=== PATIENT | male | born 1960 | race Hispanic/Latino ===

== ENCOUNTER 2019-10-27 07:20 | Observation (INO) | payer BC, OTHER ==
[2019-10-27] MEDS ORDERED: Ondansetron PF 4 MG/2 ML Vial ONE (07:42)
[2019-10-27 07:59] LABS: #Basophils 0.1 thou/uL (0.0-0.2); #Lymphocytes 2.3 thou/uL (1.20-3.40); #Monocytes 0.9 thou/uL (0.11-0.59); #Neutrophils 7.8 thou/uL (1.40-6.50); %Basophils 0.5 % (0.0-1.0); %Eosinophils 0.2 % (0.0-10.0); %Monocytes 7.7 % (0.0-10.0); %Neutrophils 70.6 % (42.0-75.0); Hemoglobin 12.1 g/dL (14.0-18.0); Mean Corpuscular Volume 97.3 fL (78.0-98.0); Mean Platelet Volume 8.1 fL (7.4-10.4); Platelet Count 136 thou/uL (130-400); RBC Distribution Width 12.1 % (11.5-14.5); Red Blood Cell (RBC) Count 3.67 mill/uL (4.70-6.10); White Blood Cell (WBC) Count 11.1 thou/uL (4.8-10.8)
[2019-10-27 08:16] LABS: ALT (SGPT) 77 U/L (8-55); AST (SGOT) 62 U/L (5-34); Albumin 4.5 g/dL (3.5-5.0); Alkaline Phosphatase 59 U/L (40-110); Anion Gap 18 mmol/L (10-20); BUN (Urea Nitrogen) 15 mg/dL (8.4-25.7); Calc. Creatinine Clearance 0 mL/min (70-130); Carbon Dioxide 34 mmol/L (22-29); Estimated GFR-MDRD 78; Globulin 2.9 g/dL (2.4-3.5); Glucose 251 mg/dL (70-105); Lipase 56 U/L (8-78); Protein, Total 7.4 g/dL (6.0-8.3); Sodium 120 mmol/L (136-145)
[2019-10-27 08:19] LABS: Chloride 71 mmol/L (98-107); Potassium 2.8 mmol/L (3.5-5.1)
[2019-10-27 08:38] LABS: Chloride 79 mmol/L (98-107)
[2019-10-27 08:39] LABS: Potassium 2.9 mmol/L (3.5-5.1)
[2019-10-27] MEDS ORDERED: Potassium Chloride 20 MEQ/100 ML PREMIX BAG ONE (08:44)
[2019-10-27 08:47] LABS: Sodium 123 mmol/L (136-145)
[2019-10-27] MEDS ORDERED: Pantoprazole 40 MG VIAL ONE (08:54)
--- NOTE | 2019-10-27 08:55 | RAD ---
Exam: Chest one view HISTORY:Tachycardia Comparison: Priors are not available FINDINGS: Cardiac silhouette: Normal Aorta: Unremarkable Pulmonary vessels: Normal Costophrenic angles: Clear LUNGS: No masses or consolidation. Pneumothorax: None Osseous abnormalities: None IMPRESSION: No acute cardiopulmonary process.
[2019-10-27 09:22] LABS: Bilirubin Negative (Negative); Blood, Urine Negative (Negative); Clarity Clear (Clear); Glucose, Urine (Dipstick) 500 mg/dL (Negative); Ketone, Urine Trace mg/dL (Negative); Leukocyte Negative (Negative); Nitrite Negative (Negative); Protein, Urine (Dipstick) Negative (Neg-Trace); Specific Gravity, Urine 1.015 (1.005-1.030)
[2019-10-27 10:17] LABS: Anion Gap 16 mmol/L (10-20); BUN (Urea Nitrogen) 13 mg/dL (8.4-25.7); Calc. Creatinine Clearance 0 mL/min (70-130); Calcium 8.3 mg/dL (7.8-10.44); Carbon Dioxide 33 mmol/L (22-29); Chloride 79 mmol/L (98-107); Estimated GFR-MDRD Greater than 90; Glucose 140 mg/dL (70-105); Potassium 3.2 mmol/L (3.5-5.1); Sodium 125 mmol/L (136-145)
[2019-10-27] MEDS ORDERED: Thiamine HCl 200 MG/2 ML VIAL ONE (10:28)
[2019-10-27 10:30] LABS: Lactic Acid 1.6 mmol/L (0.5-2.2)
[2019-10-27 12:59] LABS: Anion Gap 19 mmol/L (10-20); BUN (Urea Nitrogen) 13 mg/dL (8.4-25.7); Calc. Creatinine Clearance 0 mL/min (70-130); Calcium 8.9 mg/dL (7.8-10.44); Carbon Dioxide 30 mmol/L (22-29); Chloride 79 mmol/L (98-107); Estimated GFR-MDRD 88; Glucose 129 mg/dL (70-105); Sodium 125 mmol/L (136-145)
[2019-10-27 13:01] LABS: Potassium 2.8 mmol/L (3.5-5.1)
[2019-10-27 13:03] VITALS: BMI 23.6
[2019-10-27] MEDS ORDERED: Ondansetron ODT 4 MG TAB SL PRN (14:27)
[2019-10-27] MEDS ORDERED: Ondansetron PF 4 MG/2 ML Vial IVP PRN (14:27)
[2019-10-27] MEDS ORDERED: Acetaminophen 325 MG TAB PO PRN (14:27)
[2019-10-27] MEDS ORDERED: NS 0.9% w/ 40 MEQ KCL 1,000 ML IV SCH (14:30)
[2019-10-27] MEDS ORDERED: Potassium Chloride 20 MEQ TAB PO SCH (17:00)
[2019-10-27] MEDS: NS 0.9% w/ 40 MEQ KCL 1,000 ML IV SCH (18:26)
[2019-10-28] MEDS: NS 0.9% w/ 40 MEQ KCL 1,000 ML IV SCH (02:59)
[2019-10-28 05:33] LABS: #Eosinphils 0.1 thou/uL (0.0-0.7); #Monocytes 0.7 thou/uL (0.11-0.59); #Neutrophils 3.9 thou/uL (1.40-6.50); %Basophils 0.5 % (0.0-1.0); %Eosinophils 1.5 % (0.0-10.0); %Lymphocytes 29.7 % (21.0-51.0); %Monocytes 10.1 % (0.0-10.0); %Neutrophils 58.2 % (42.0-75.0); Hemoglobin 10.2 g/dL (14.0-18.0); Mean Corpuscular HGB CONC 33.7 g/dL (32.0-36.0); Mean Corpuscular Hemoglobin 33.8 pg (27.0-31.0); Mean Platelet Volume 8.4 fL (7.4-10.4); Platelet Count 115 thou/uL (130-400); RBC Distribution Width 12.9 % (11.5-14.5); Red Blood Cell (RBC) Count 3.02 mill/uL (4.70-6.10); White Blood Cell (WBC) Count 6.7 thou/uL (4.8-10.8)
[2019-10-28 05:44] LABS: ALT (SGPT) 64 U/L (8-55); AST (SGOT) 57 U/L (5-34); Albumin 3.5 g/dL (3.5-5.0); Alkaline Phosphatase 44 U/L (40-110); Anion Gap 14 mmol/L (10-20); BUN (Urea Nitrogen) 10 mg/dL (8.4-25.7); Bilirubin, Total 0.5 mg/dL (0.2-1.2); Calc. Creatinine Clearance 83 mL/min (70-130); Calcium 8.3 mg/dL (7.8-10.44); Carbon Dioxide 30 mmol/L (22-29); Chloride 93 mmol/L (98-107); Estimated GFR-MDRD 90; Globulin 2.1 g/dL (2.4-3.5); Glucose 148 mg/dL (70-105); Potassium 4.2 mmol/L (3.5-5.1); Protein, Total 5.6 g/dL (6.0-8.3); Sodium 133 mmol/L (136-145)
[2019-10-28 06:01] LABS: MDiff Complete? YES; Macrocytosis SLIGHT = 6-15 cells (100X) (0-5/hpf); Platelet Morphology Comment Appears Decreased
[2019-10-28 12:27] LABS: SARS-CoV-2 MS2 Positive; SARS-CoV-2 N Gene Negative; SARS-CoV-2 S Gene Negative; SARS-CoV-2 by NAA Not Detected (NotDetected); SARS-CoV-2 orf1ab Negative
[2019-10-28 13:41] VITALS: BP 104/64; TEMP 98.4
== END 2019-10-28 14:23 | disposition home or self-care (01) ==
LOC: BURERS 07:20 → BURMED 09:35
PROVIDERS: ADMIT Family Medicine; ATTEND Family Medicine
DX: K52.9 Noninfective gastroenteritis and colitis, unspecified (principal); E87.1 Hypo-osmolality and hyponatremia; E87.6 Hypokalemia; R73.9 Hyperglycemia, unspecified; F10.10 Alcohol abuse, uncomplicated; Z79.899 Other long term (current) drug therapy; Z88.8 Allergy status to other drugs, medicaments and biological substances; Z20.828 Contact with and (suspected) exposure to other viral communicable diseases
CPT/HCPCS: 36415; 71045; 80053; 81003; 83605; 83690; 83735; 84484; 85025; 87040; 87635; 93005; 94760; 96361; 96365; 96366; 96375; C9113; G0378; J2405; J3411; J3480; U0003

== ENCOUNTER 2020-06-25 14:04 | Outpatient (CLI) | payer OTHER | END 2020-06-25 14:05 | disposition home or self-care (01) | LOC: BURRAD 14:04 | PROVIDERS: ATTEND Physician Assistant | DX: M89.8X1 Other specified disorders of bone, shoulder (principal); G89.11 Acute pain due to trauma ==